=== PATIENT | female | born 1990 | race Two or more races ===

== ENCOUNTER → 2025-07-31 | Emergency (ER) | payer OTHER ==
[~2025-07-31] VITALS: Ht 167.6 cm; Wt 83.5 kg
[~2025-07-31] MED LIST: 0.9 % SODIUM CHLORIDE 1,000 ML IV STA; ALBUTEROL SULFATE 3 ML/2.5 MG AMPUL.NEB IH ONE; FAMOTIDINE/PF 20 MG/2 ML VIAL IV STA; FAMOTIDINE/PF 20 MG/2 ML VIAL ONE; HYDROXYZIN10 MG/5 ML PO; IPRATROPIUM BROMIDE 0.5 MG/2.5 ML AMPUL.NEB IH ONE; LASIX80 MG PO; LEVALBUTEROL HCL 0.63 MG/3 ML SOLUTION IH ONE; LOPRESSOR25 MG PO; METHYLPREDNISOLONE SOD SUCC 125 MG VIAL ONE; ONDANSETRON HCL 2 MG/ML VIAL IV STA; ONDANSETRON HCL 2 MG/ML VIAL ONE; POTASSIUM BICARBONATE/CIT AC 25 MEQ TABLET.EFF PO ONE; RISPERDAL0.5 MG PO; TRAZODONE HCL150 MG PO; VANCOMYCIN HCL 1,000 MG VIAL ONE
[2025-07-31 10:40] VITALS: BP 135/87; O2SAT 99
[2025-07-31 12:23] LABS: BASO % 1.7 % (0.1-1.2); EOS # 0.55 (0.04-0.54); EOS % 11.6 % (0.7-7.0); LYMPH # 2.86 (1.18-3.74); LYMPH % 60.2 % (19.3-53.1); MEAN PLATELET VOLUME 13.30 fl (9.4-12.4); MONO # 0.89 (0.24-0.82); NEUT # 0.35 (1.56-6.13); NEUT % 7.4 % (34.0-71.1); RED CELL DISTRIBUTION WIDTH 18.5 % (11.6-14.4)
[2025-07-31 12:49] LABS: INR 1.08
[2025-07-31 12:54] LABS: BUN CREA RATIO 13.0 (7.0-25.0); CREATININE SERUM 0.8 mg/dL (0.55-1.02); GFR 82.11; GLUCOSE FASTING 98.0 mg/dL (65-100); OSMOLALITY SERUM 286.0 MOSM/KG (275-295)
[2025-07-31 12:56] LABS: BAND MAN 1.0 %; EOSINOPHIL MAN 3.0 %; LYMPHOCYTE MAN 67.0 %; MONO % 18.7 % (4.7-12.5); MONOCYTE MAN 6.0 %; NEUTROPHILS MAN 13.0 %
== END | disposition left against medical advice (07) ==
LOC: ER 09:35
PROVIDERS: General Practice
DX: D64.89 Other specified anemias (principal); Z88.0 Allergy status to penicillin; Z88.6 Allergy status to analgesic agent; I10 Essential (primary) hypertension; E87.6 Hypokalemia; D68.2 Hereditary deficiency of other clotting factors